=== PATIENT | male | born 2000 | race Caucasian/White ===

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

== ENCOUNTER 2022-01-20 14:46 | Emergency (ER) | payer OTHER | END 2022-01-20 16:40 | disposition home or self-care (01) | LOC: ER1 14:46 | DX: S60.222A Contusion of left hand, initial encounter (principal); S90.31XA Contusion of right foot, initial encounter; X50.9XXA Other and unspecified overexertion or strenuous movements or postures, initial encounter | CPT/HCPCS: 73130; 73630; 99283 ==

== ENCOUNTER 2022-02-27 16:27 | Emergency (ER) | payer OTHER ==
[2022-02-27] MEDS ORDERED: IBUPROFEN600 MG PO (18:23)
== END 2022-02-27 18:45 | disposition home or self-care (01) ==
LOC: ER1 16:27
DX: S93.401A Sprain of unspecified ligament of right ankle, initial encounter (principal); X50.1XXA Overexertion from prolonged static or awkward postures, initial encounter
CPT/HCPCS: 73610; 99283